=== PATIENT | male | born 1960 | race Two or more races ===

== ENCOUNTER 2017-06-09 21:13 | Emergency (ER) | payer MEDICARE, BC ==
[2017-06-09 21:33] VITALS: RESP 22; TEMP 97.3
[2017-06-09] MEDS ORDERED: LIDOCAINE HCL 2% MPF SOL SC ONE (21:36)
[2017-06-09] MEDS ORDERED: LIDOCAINE HCL 2% MPF SOL ONE (21:39)
[2017-06-09] MEDS ORDERED: BACITRACIN 500 U/GM OIN TOP ONE ×2 (22:00→22:01)
[2017-06-09 22:36] VITALS: BP 157/88; PULSE 95; O2SAT 94
== END 2017-06-09 22:28 | disposition home or self-care (01) | DRG 605 ==
LOC: ED 21:13
DX: S61.214A Laceration without foreign body of right ring finger without damage to nail, initial encounter (principal); S61.216A Laceration without foreign body of right little finger without damage to nail, initial encounter; W26.0XXA Contact with knife, initial encounter
CPT/HCPCS: 12001; 99284; A6402; A9270-GY

== ENCOUNTER 2017-06-21 06:11 | Emergency (ER) | payer MEDICARE, BC ==
[2017-06-21] MEDS ORDERED: HYDROMORPHONE HCL 2 MG/ML SOL IV ONE ×3 (07:29→07:49)
[2017-06-21] MEDS ORDERED: HYDROMORPHONE HCL 2 MG/ML SOL ONE (07:39)
[2017-06-21 07:52] LABS: CALCIUM 8.7 mg/dl (8.5-10.1); POTASSIUM 4.2 mMol/L (3.5-5.1)
[2017-06-21 07:57] VITALS: RESP 16; TEMP 97.1
[2017-06-21 08:03] LABS: HEMATOCRIT 43 % (39-53)
[2017-06-21] MEDS ORDERED: HYDROMORPHONE 1 MG/ML SYRINGE IV ONE (08:25)
[2017-06-21] MEDS ORDERED: HYDROMORPHONE 1 MG/ML SYRINGE ONE (08:25)
[2017-06-21] MEDS ORDERED: IBUPROFEN 600 MG TAB PO ONE (09:48)
[2017-06-21] MEDS ORDERED: IBUPROFEN 600 MG TAB ONE (09:49)
[2017-06-21 11:38] VITALS: BP 152/84; PULSE 70; O2SAT 97
[2017-06-23 07:53] LABS: BASOPHILS % (AUTO) 1 % (0-3); EOSINOPHILS % (AUTO) 0 % (0-9); MEAN CORPUSCULAR HGB CONC 34.4 gm/dl (32.0-36.0); MEAN CORPUSCULAR VOLUME 82 fL (80-100); MONOCYTES % (AUTO) 4.6 % (0-12); NEUTROPHILS % (AUTO) 70.2 % (37-80)
== END 2017-06-21 10:02 | disposition home or self-care (01) | DRG 556 ==
LOC: ED 06:11
DX: M25.522 Pain in left elbow (principal); Z87.81 Personal history of (healed) traumatic fracture
CPT/HCPCS: 73030; 73070; 80048; 82550; 85025; 99285; J1170; A9270-GY